=== PATIENT | male | born 1965 | race Caucasian/White ===

== ENCOUNTER 2016-12-10 09:01 | Emergency (ER) | payer BC ==
[2016-12-10 09:21] VITALS: BP 123/59
--- NOTE | 2016-12-10 10:54 | RAD ---
Indication: Right Wrist pain. 3 views of the right wrist demonstrates tiny fragment of bone adjacent to the radial styloid process which is likely sequela of prior injury. No recent injury is noted. IMPRESSION: Probable sequela of prior injury at the radial styloid process. No recent fracture is noted.
--- NOTE | 2016-12-10 11:27 | UC ---
Hand/Wrist HPI - HPI Summary HPI Summary: YESTERDAY WAS DRIVING HEAVY MACHINERY AND SHIFTING, TODAY HAS RIGHT WRIST PAIN. NO KNOWN INJURY. PAIN WITH FLEXION OF WRIST - History Of Current Complaint Chief Complaint: UCUpperExtremity Stated Complaint: RIGHT WRIST PAIN Time Seen by Provider: 12/10/16 10:25 Hx Obtained From: Patient Onset/Duration: Gradual Onset, Lasting Days, Still Present Severity Initially: Mild Severity Currently: Moderate Character Of Pain: Dull, Aching Aggravating Factor(s): Movement, Flexion Alleviating: Rest Associated Signs And Symptoms: Negative: Swelling, Redness, Bruising, Fever, Weakness, Numbness/Tingling Related History: Occupational Injury, Dominant Hand Right - Allergies/Home Medications Allergies/Adverse Reactions: Allergies Allergy/AdvReac Type Severity Reaction Status Date / Time No Known Allergies Allergy Verified 12/10/16 09:13 Home Medications: Home Medications Acetaminophen 1,000 mg PO ONCE PRN 12/10/16 [History Confirmed 12/10/16] Ibuprofen TAB* [Advil TAB*] 200 mg PO ONCE PRN 12/10/16 [History Confirmed 12/10] PMH/Surg Hx/FS Hx/Imm Hx Previously Healthy: Yes Cardiovascular History Of: Reports: Hypertension - Surgical History Surgical History: None - Family History Known Family History: Positive: Respiratory Disease - MOTHER PNEUMONIA - Social History Occupation: Employed Full-time Lives: With Family Alcohol Use: None Substance Use Type: None Smoking Status (MU): Current Every Day Smoker Type: Smokeless Tobacco Amount Used/How Often: 1/2 - 3/4 can daily Length of Time of Smoking/Using Tobacco: 10 YRS Review of Systems Constitutional: Negative Skin: Negative Eyes: Negative ENT: Negative Respiratory: Negative Cardiovascular: Negative Gastrointestinal: Negative Genitourinary: Negative Motor: Negative Neurovascular: Negative Musculoskeletal: Arthralgia - RIGHT WRIST, Myalgia Neurological: Negative Psychological: Negative All Other Systems Reviewed And Are Negative: Yes Physical Exam Triage Information Reviewed: Yes Appearance: Well-Appearing, No Pain Distress, Well-Nourished Vital Signs: Initial Vital Signs Temp 97 F 12/10/16 09:15 Pulse 67 12/10/16 09:15 Resp 20 12/10/16 09:15 BP 123/59 12/10/16 09:15 Pulse Ox 97 12/10/16 09:15 Vital Signs Reviewed: Yes Eye Exam: Normal Eyes: Positive: Conjunctiva Clear ENT Exam: Normal ENT: Positive: Normal ENT inspection Dental Exam: Normal Neck exam: Normal Respiratory Exam: Normal Respiratory: Positive: Chest non-tender, Lungs clear, Normal breath sounds, No respiratory distress, No accessory muscle use Cardiovascular Exam: Normal Cardiovascular: Positive: RRR, No Murmur, Pulses Normal, Brisk Capillary Refill Abdominal Exam: Normal Abdomen Description: Positive: Nontender Musculoskeletal: Positive: No Edema, Strength Limited @ - RIGHT WRIST, ROM Limited @ - RIGHT WRIST, Other: - RIGHT WRIST POSITIVE TINELS Neurological Exam: Normal Psychological Exam: Normal Skin Exam: Normal Hand/Wrist Course/Dx - Differential Dx/Diagnosis Differential Diagnosis/HQI/PQRI: Carpal Tunnel Syndrome, Sprain, Strain Provider Diagnoses: RIGHT WRIST SPRAIN Discharge - Discharge Plan Condition: Stable Disposition: HOME Patient Education Materials: Wrist Sprain (ED) Forms: *Work Release Referrals: [facility] [Outside] Prasanth Mcconnell MD [Medical Doctor] - Rebeka Camacho NP [Primary Care Provider] - Additional Instructions: PHYSICAL THERAPY REFERRAL: You have been prescribed physical therapy. Treatments may include stretching, exercise, application of heat or cold, and other modalities. After an injury, PT can reduce swelling and pain. In recovery, PT is used to restore mobility and strength. Your specific treatment goals are: Reduction of Swelling (EGS, US, ice as needed) ___X__ Pain Reduction (EGS, US, ice as needed) TENS Pack Fitting and Instruction Wound Hydrotherapy ___X__ Preservation of Mobility ___X__ Jain of Mobility ___X__ Strength Jain ___X__ Work or Sports Hardening This instruction sheet also serves as your PHYSICAL THERAPY REFERRAL! Please take it with you to the therapist, so he/she will be aware of your diagnosis and treatment plan. You may see the physical therapist of your choice for these treatments, but may wish to check with your insurance to be sure the provider you select is covered. It's important to see the doctor to whom you have been referred for follow up.
== END 2016-12-10 11:24 | disposition home or self-care (01) ==
LOC: UCCORT 09:01
DX: S63.501A Unspecified sprain of right wrist, initial encounter (principal); X50.3XXA Overexertion from repetitive movements, initial encounter; Y93.89 Activity, other specified; Y92.89 Other specified places as the place of occurrence of the external cause; Y99.0 Civilian activity done for income or pay; I10 Essential (primary) hypertension; F17.220 Nicotine dependence, chewing tobacco, uncomplicated
CPT/HCPCS: 99212; G0463